=== PATIENT | male | born 1990 | race Caucasian/White ===

== ENCOUNTER 2017-12-03 12:39 | Emergency (ER) | payer OTHER ==
[~2017-12-03] VITALS: Ht 190.5 cm; Wt 122.9 kg
[2017-12-03 12:43] VITALS: Ht 190.5 cm; Wt 122.9 kg
[2017-12-03 13:27] VITALS: BP 157/91
== END 2017-12-03 13:27 | disposition home or self-care (01) ==
LOC: ED 12:39
DX: S61.012A Laceration without foreign body of left thumb without damage to nail, initial encounter (principal); W26.9XXA Contact with unspecified sharp object(s), initial encounter; Y93.89 Activity, other specified; Y92.89 Other specified places as the place of occurrence of the external cause; Y99.8 Other external cause status